=== PATIENT | female | born 1945 | race Caucasian/White ===

== ENCOUNTER 2024-11-19 15:24 | Outpatient (OUT) | payer MEDICARE, SELFPAY ==
--- OUTSIDE RECORDS SUMMARY | 2023-06-24 07:09 | XMS_ITS ---
Author Organization The [facility] [place] in [place] Address [address] [place] [address] Care Team Providers Care Buyer Renter Name Role Phone Gino Hall MD Primary Care Provider Unavailab Dexter Choi Unavailable [phone] REASON FOR VISIT refill see message Medications Medication SIG (Take, Route, Fr equency, Duration) Notes Start Date End Date Status CeleBREX 200 MG 1 capsule with food Orally Twice a day for 30 day(s) 06/03/2023 Active traMADol HCl 50 MG 1 tablet as needed O rally BID for 30 days 06/24/2023 Active Encounters Encounter Location Date Provider Diagnosis [facility] [address] [facility] [address] [address] [place], [place] [id number] 06/24/2023 Dexter Arboleda Primary osteoarthrit is of knees, bilateral M17.0 Assessments Encounter Date Diagnosis (ICD Code) Assessment Notes Treatment Notes Treatment Clinical Notes Section Notes 06/24/2023 Primary osteoarthritis of knees, bilateral (ICD-10 - M17.0) Plan Of Treatment Medication Medication Name Sig Start Date Stop Date Notes CeleBREX 200 MG 1 capsule with food Orally Twice a day for 30 day(s) 06/03/2023 traMADol HCl 50 MG 1 tablet as needed O rally BID for 30 days 06/24/2023 Progress Notes * Michelle ROSEDOB:[birth year] (77 yo F)Acc No.[id number]:06/24/2023 Patient: Julián oteroMichelle valenzuela :1945 A ge:77 Y S ex:Female Address:[address] [place], [address] * Refills Start traMADol HCl Tablet, 50 MG, Orally, 60 Tablet, 1 tablet as needed, BID, 30 days, Refills=0 Refill CeleBREX Capsule, 200 MG, Orally, 60 Capsule, 1 capsule with food, Twice a day, 30 day(s), Refills=3 * true * Date: Generated for Jeanne crow/Celeste/Brendaitting on: 0 11/19/2024 03:26 PM EDT
--- OUTSIDE RECORDS SUMMARY | 2023-10-04 07:00 | XMS_ITS ---
Author Organization The [facility] in [place] Address [address] [place] [address] Care Team Providers Care Film Loader Name Role Phone Rafael MOSLEY, Gino Primary Care Provider Unavailab Dexter Choi Unavailable [phone] REASON FOR VISIT -4 Month Follow Up- Encounters Encounter Location Date Provider Diagnosis [facility] [address] [facility] [address] [place], [place] [id number] 10/04/2023 Dexter Arboleda Plan Of Treatment No Information Progress Notes * Michelle ROSEDOB:[birth year] (79 yo F)Acc No.[id number]:10/04/2023 UNLOCKED PROGRESS NOTE Follow Up Patient: Michelle GALEAS Provider: Lauren Arboleda MD :1945 A ge:78 Y S ex:Female Date:10/04/2023 Address:[address] [place], [place] [id number] Pcp:Gino Hall MD Subjective: * Chief Complaints: * 1 . -4 Month Follow Up-. * Medical History: Objective: * Vitals: Assessment: Plan: * Treatment: * * Electronic signature of Dexter Arboleda MD, [id number] on 11/19/2024 at 03:26 PM EDT Sign off status: Pending Visit Status: R /S (Rescheduled) * Provider: Lauren Arboleda MD Date: 0 10/04/2023 Generated for Printi ng/Faxing/eTransmitting on: 0 11/19/2024 03:26 PM EDT
--- OUTSIDE RECORDS SUMMARY | 2023-11-08 06:15 | XMS_ITS ---
Author Organization The [facility] in [place] Address [address] [place] [address] Care Team Providers Care Pediatric Intensive Physician Name Role Phone Rafael MOSLEY, Gino Primary Care Provider Unavailab Dexter Choi Unavailable [phone] REASON FOR VISIT 5 month follow up Encounters Encounter Location Date Provider Diagnosis [facility] [address] [place], [place] [id number] 11/08/2023 Dexter Arboleda Plan Of Treatment No Information Progress Notes * Michelle ROSEDOB:[birth year] (79 yo F)Acc No.[id number]:11/08/2023 UNLOCKED PROGRESS NOTE Follow Up Patient: Michelle GALEAS Provider: Lauren Arboleda MD :1945 A ge:78 Y S ex:Female Date:11/08/2023 Address:[address] [place], [place] [id number] Pcp:Gino Hall MD Subjective: * Chief Complaints: * 1 . 5 month follow up. * Medical History: Objective: * Vitals: Assessment: Plan: * Treatment: * * Electronic signature of Dexter Arboleda MD, [id number] on 11/19/2024 at 03:26 PM EDT Sign off status: Pending Visit Status: C ANC (Cancelled) * Provider: Lauren Arboleda MD Date: 11/08/2023 Generated for Printi ng/Faxing/eTransmitting on: 11/19/2024 03:26 PM EDT
--- OUTSIDE RECORDS SUMMARY | 2024-11-16 09:30 | XMS_ITS | Encounter Summary ---
Author Organization [facility] Address [address] [place] [address] Care Team Providers Care Director Of Religious Life Name Role Phone Gino Hall MD Primary Care Provider [phone] Reason for Visit * Reason Comments Medicare Annual Wellness Visit Lucianoen t Encounter Details Date Type Department Care Team ([facility] Contact Info) Description 11/16/2024 9:30 AM EDT Office Visit [facility] [address] [facility] [address] [place] [id number] Crista Rubio, PA 112 [facility] [address] [place] [address] Medicare annual wellness visit, subsequent (Primary Dx); ACP (advance care planning); Estrogen deficiency; Obesity (BMI 30-39.9); BMI 31.0-31.9,adult; 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; Benign neoplasm of colon, unspecified part of colon; Diverticulosis of colon; Generalized osteoarthritis; Osteopenia of multiple sites; Primary osteoarthritis of left knee; Primary osteoarthritis of right knee; Vitamin D deficiency; Calcinosis cutis; Elevated LDL cholesterol level (CMS/HCC); Meralgia paresthetica, unspecified laterality; Systemic sclerosis with limited cutaneous involvement (CMS/HCC) Social History Tobacco Use Types Packs/Day Years Used Date Smoking Tobacco: Never Smokeless Tobacco: Never Alcohol Use Standard Drinks/Week Comments Yes 4 (1 standard drink = 0.6 oz pure alcohol) Caffeine intake: chocolate, coffee AUDIT-C Answer Date Recorded Q1: How often do you have a drink containing alc ohol? Monthly or less 10/02/2023 Q2: How many drinks containi ng alcohol do you have on a typical day when you are drinking? 1 or 2 10/02/2023 Q3: How often do you have si x or more drinks on one occasion? Never 10/02/2023 PHQ-2 Answer Date Recorded Patient Health Questionnaire-2 Score 0 11/16/2024 Comments Unknown Sex and Gender Information Value Date Recorded Sex Assigned at Not on file Legal Sex Female 7:22 PM EDT Gender Identity Not on file Sexual Orientation Not on file documented as of this encounter Last Filed Vital Signs Vital Sign Reading Time Taken Comments Blood Pressure 118/76 11/16/2024 9:32 AM EDT Pulse 89 11/16/2024 9:32 AM EDT Temperature - - Respiratory Rate 16 11/16/2024 9:32 AM EDT Oxygen Saturation 96% 11/16/2024 9:32 AM EDT Inhaled Oxygen Concentration - - Weight 77.4 kg (170 lb 9.6 oz) 11/16/2024 9:32 A M EDT Height 156.2 cm (5' 1.5 ) 11/16/2024 9:32 AM EDT Body Mass Index 31.71 11/16/2024 9:32 AM EDT documented in this encounter Functional Status * Over the past 2 weeks, how often have you been bothered by any of the following problems? Question Answer Date of Assessment Author Little interest or pleasure in doing things Not at all 11/16/2024 9:00 AM EDT Corina Rivera LP N Feeling down, depressed, or hopeless Not at all 11/16/2024 9:00 AM EDT Corina Rivera LP N Patient Health Questionnaire -2 Score 0 11/16/2024 9:00 AM EDT Corina Rivera LP N * Question Answer Date of Assessment Author Trouble falling or staying asleep, or sleeping too much Not at all 11/16/2024 9:00 AM EDT Stella Rivera LPN Feeling tired or having quincy le energy Not at all 11/16/2024 9:00 AM EDT Corina Rivera LP N Poor appetite or overeating Not at all 11/16/2024 9: 00 AM EDT Corina Rivera LPN Feeling bad about yourself - or that you are a failure or have let yourself or your family down Not at all 11/16/2024 9:00 AM EDT Corina Rivera LPN Trouble concentrating on thi ngs, such as reading the newspaper or watching television Not at all 11/16/2024 9:00 AM EDT Corina Rivera LP N Moving or speaking so slowly that other people could have noticed? Or the opposite - being so fidgety or restless that you have been moving around a lot more than usual. Not at all 11/16/2024 9:00 AM EDT Corina Rivera LP N Thoughts that you would be better off or hurting yourself in some way Not at all 11/16/2024 9:00 AM EDCorina High L PN Patient Health Questionnaire -9 Score 0 11/16/2024 9:00 AM EDT Corina Rivera LP N documented as of this encounter Progress Notes * JUN Valentin - 11/16/2024 9:30 AM EDT Images from the original note were not included. Subjective Patient ID: Michelle Rose is a 79 y.o. female who presents for Medicare Annual Wellness Visit Subsequent. HPI Medicare Wellness Over the past 2 weeks, how often have you been bothered by any of the following problems? Little interest or pleasure in doing things: Not at all Feeling down, depressed, or hopeless: Not at all Patient Health Questionnaire-2 Score: 0 Over the past 2 weeks, how often have you been bothered by any of the following problems? Trouble falling or staying asleep, or sleeping too much: Not at all Feeling tired or having little energy: Not at all Poor appetite or overeating: Not at all Feeling bad about yourself - or that you are a failure or have let yourself or your family down: Not at all Trouble concentrating on things, such as reading the newspaper or watching television: Not at all Moving or speaking so slowly that other people could have noticed? Or the opposite - being so fidgety or restless that you have been moving around a lot more than usual.: Not at all Thoughts that you would be better off or hurting yourself in some way: Not at all Patient Health Questionnaire-9 Score: 0 Zhao Fall Risk History of Falling, Immediate or Within 3 Months: No Health Risk Assessment Form Do you need help eating, bathing, using the toilet, dressing, or getting around your home?: No Can you prepare your own meals?: Yes Can you do your own housework without help?: Yes Can you shop for groceries or clothes without help?: Yes Do you exercise for about 20 minutes 3 or more days a week?: No How confident are you that you can control and manage most of your health problems?: Very confident Can you mange your money, credit cards and accounts, pay bills and taxes?: Yes Vision Screening: Yes, no gross abnormalities Hearing Screening: Yes, no gross abnormalities Cognitive Screening Self Assessment: No overt cognitive deficiency is apparent by direct observation Three Word Registration: Village, Kitchen, Baby Clock Drawing: Normal Clock - 2 Three Word Recall: All 3 words correct - 3 Total Score (0-5 Points): 5 Pain Assessment Pain Score: 1 Advance Care Planning Do you have a living will?: Yes Do you have a medical power of tax associate attorney?: Yes Current Outpatient Medications on File Prior to Visit Medication Sig Dispense Refill Calcium Carbonate-Vit D-Min (Calcium 600+D Plus Minerals) 600-400 MG-UNIT chewable tablet Chew 1 tablet Daily cholecalciferol (Vitamin D-3) 125 MCG (5000 UT) capsule Take 1 capsule (125 mcg) by mouth Daily 90 capsule 3 nystatin (Mycostatin) [id number] UNIT/GM powder Apply 1 application topically every 12 (twelve) hours. No current facility-administered medications on file prior to visit. I have reviewed and reconciled the history and medication list with the patient today. 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 Smoking Status Never BSA 1.83 m?? Review of Systems Constitutional: Negative for chills, fatigue and fever. HENT: Negative for congestion, ear pain, rhinorrhea and sore throat. Eyes: Negative for pain, discharge and visual disturbance. Respiratory: Negative for cough, shortness of breath and wheezing. Cardiovascular: Negative for chest pain, palpitations and leg swelling. Gastrointestinal: Negative for abdominal pain, constipation, diarrhea, nausea and vomiting. Genitourinary: Negative for difficulty urinating, dysuria and frequency. Musculoskeletal: Positive for arthralgias. Negative for back pain. Skin: Negative for rash. Neurological: Negative for dizziness and numbness. Psychiatric/Behavioral: Negative for sleep disturbance. The patient is not nervous/anxious. Objective Physical Exam Constitutional: General: She is not in acute distress. Appearance: She is well-developed. She is obese. HENT: Head: Normocephalic and atraumatic. Right Ear: Tympanic membrane and ear canal normal. Left Ear: Tympanic membrane and ear canal normal. Nose: Nose normal. Mouth/Throat: Mouth: Mucous membranes are moist. Pharynx: No posterior oropharyngeal erythema. Eyes: General: No scleral icterus. Extraocular Movements: Extraocular movements intact. Conjunctiva/sclera: Conjunctivae normal. Pupils: Pupils are equal, round, and reactive to light. Neck: Vascular: No carotid bruit. Cardiovascular: Rate and Rhythm: Normal rate and regular rhythm. Heart sounds: Normal heart sounds. No murmur heard. Pulmonary: Effort: Pulmonary effort is normal. No respiratory distress. Breath sounds: Normal breath sounds. No wheezing, rhonchi or rales. Abdominal: General: Bowel sounds are normal. There is no distension. Palpations: Abdomen is soft. Tenderness: There is no abdominal tenderness. There is no guarding. Musculoskeletal: General: No swelling. Normal range of motion. Cervical back: Normal range of motion and neck supple. No tenderness. Comments: Arthritic changes noted of bilateral hands. Skin: General: Skin is warm and dry. Capillary Refill: Capillary refill takes less than 2 seconds. Findings: No rash. Neurological: General: No focal deficit present. Mental Status: She is alert and oriented to person, place, and time. Cranial Nerves: No cranial nerve deficit. Sensory: No sensory deficit. Motor: No weakness. Gait: Gait normal. Deep Tendon Reflexes: Reflexes normal. Psychiatric: Mood and Affect: Mood normal. Behavior: Behavior normal. Thought Content: Thought content normal. Judgment: Judgment normal. Assessment & Plan 1. Medicare annual wellness visit, subsequent (Primary) Reviewed all relevant preventative screenings with the patient in detail. Medicare Wellness form completed and will be scanned into patient's chart. All needed testing was ordered. Will continue withyearly Medicare Wellness exams. - CBC and differential; Future - Comprehensive metabolic panel; Future - C-reactive protein; Future - Sedimentation rate, automated; Future - Vitamin D 25 hydroxy Total; Future - Lipid panel; Future 2. ACP (advance care planning) Patient willing to discuss ACP. Pt has Living Will and DPOA in place. 3. Estrogen deficiency This is a chronic medical condition that is stable since last assessment. Updated order for DEXA provided at this time. - DEXA bone density; Future 4. Obesity (BMI 30-39.9) Has lost 4 pounds since her last appointment. Encouraged portion control, decrease simple sugars and carbohydrates, gradually increase activity level. Aim for continued gradual steady weight loss. 5. BMI 31.0-31.9,adult Encouraged portion control, decrease simple sugars and carbohydrates, gradually increase activity level. Aim for continued gradual steady weight loss. 6. 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 No treatment suggested atthis time. 7. Benign neoplasm of colon, unspecified part of colon Seen on previous Colonoscopy. Denies concerns at this time. 8. Diverticulosis of colon Seen on previous Colonoscopy. Denies concerns at this time. 9. Generalized osteoarthritis Patient no longer wishes to follow with Rheumatology. Does not feel that her visits were helpful and would prefer to have her labs monitored here. Ordered CRP and Sed rate to be drawn with her labs in March. - C-reactive protein; Future - Sedimentation rate, automated; Future 10. Osteopenia of multiple sites This is a chronic medical condition that is stable since last assessment. No changes in treatment are suggested at this time. Continue Vitamin D supplement daily. 11. Primary osteoarthritis of left knee Patient no longer wishes to follow with Rheumatology. Does not feel that her visits were helpful and would prefer to have her labs monitored here. Ordered CRP and Sed rate to be drawn with her labs in March. 12. Primary osteoarthritis of right knee Patient no longer wishes to follow with Rheumatology. Does not feel that her visits were helpful and would prefer to have her labs monitored here. Ordered CRP and Sed rate to be drawn with her labs in March. 13. Vitamin D deficiency This is a chronic medical condition that is stable since last assessment. No changes in treatment are suggested at this time. Continue Vitamin D supplement daily. - Vitamin D 25 hydroxy Total; Future 14. Calcinosis cutis Patient no longer wishes to follow with Rheumatology. Does not feel that her visits were helpful and would prefer to have her labs monitored here. Ordered CRP and Sed rate to be drawn with her labs in March. 15. Elevated LDL cholesterol level ([facility]) This is a chronic medical condition that is stable since last assessment. Will recheck with fastinglabs in March. - CBC and differential; Future - Comprehensive metabolic panel; Future - Lipid panel; Future 16. Meralgia paresthetica, unspecified laterality Patient no longer wishes to follow with Rheumatology. Does not feel that her visits were helpful and would prefer to have her labs monitored here. Ordered CRP and Sed rate to be drawn with her labs in March. - C-reactive protein; Future - Sedimentation rate, automated; Future - Vitamin D 25 hydroxy Total; Future 17. Systemic sclerosis with limited cutaneous involvement ([facility]/HCC) Patient no longer wishes to follow with Rheumatology. Does not feel that her visits were helpful and would prefer to have her labs monitored here. Ordered CRP and Sed rate to be drawn with her labs in March. - CBC and differential; Future - Comprehensive metabolic panel; Future - C-reactive protein; Future - Sedimentation rate, automated; Future Follow up in about 1 year (around 11/16/2025) for Medicare Wellness Visit. CRISTELA HartC documented in this encounter Plan of Treatment Scheduled Orders Name Type Priority Associated Diagnoses Orde r Schedule DEXA bone density Imaging Routine Estrogen deficiency Expected: 11/16/2024, Expires: 11/16/2025 CBC and differential Lab Routine Medicare annual wellness visit, subsequent Elevated LDL cholesterol level (CMS/HCC) Systemic sclerosis with limited cutaneous involvement (CMS/HCC) Expected: 03/22/2025 (Approximate), Expires: 03/21/2026 Comprehensive metabolic panel Lab Routine Medicare annual wellness visit, subsequent Elevated LDL cholesterol level (CMS/HCC) Systemic sclerosis with limited cutaneous involvement (CMS/HCC) Expected: 03/22/2025 (Approximate), Expires: 03/21/2026 C-reactive protein Lab Routine Medicare annual wellness visit, subsequent Generalized osteoarthritis Meralgia paresthetica, unspecified laterality Systemic sclerosis with limited cutaneous involvement (CMS/HCC) Expected: 03/22/2025 (Approximate), Expires: 11/16/2025 Sedimentation rate, automated Lab Routine Medicare annual wellness visit, subsequent Generalized osteoarthritis Meralgia paresthetica, unspecified laterality Systemic sclerosis with limited cutaneous involvement (CMS/HCC) Expected: 03/22/2025 (Approximate), Expires: 11/16/2025 Vitamin D 25 hydroxy Total Lab Routine Medicare annual wellness visit, subsequent Vitamin D deficiency Meralgia paresthetica, unspecified laterality Expected: 03/22/2025 (Approximate), Expires: 11/16/2025 Lipid panel Lab Routine Medicare annual wellness visit, subsequent Elevated LDL cholesterol level (CMS/HCC) Expected: 03/22/2025 (Approximate), Expires: 11/16/2025 documented as of this encounter Visit Diagnoses Diagnosis Medicare annual wellness visit, subsequent- Primary ACP (advance care planning) Other specified counseling Estrogen deficiency Other ovarian failure Obesity (BMI 30-39.9) BMI 31.0-31.9,adult 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 Benign neoplasm of colon, unspecified part of colon Diverticulosis of colon Diverticulosis of colon (without mention of hemorrhage) Generalized osteoarthritis Generalized osteoarthrosis, involving multiple sites Osteopenia of multiple sites Primary osteoarthritis of left knee Primary osteoarthritis of right knee Vitamin D deficiency Calcinosis cutis Degenerative skin disorder Elevated LDL cholesterol level (CMS/HCC) Meralgia paresthetica, unspecified laterality Systemic sclerosis with limited cutaneous involvement (CMS/HCC) Systemic sclerosis documented in this encounter Additional Health Concerns Assessment Noted Time PHQ-9 Depression Total Score: 0 11/17/19 25 9:00 AM EDT documented as of this encounter Care Teams Director Of Religious Life Relationship Specialty Start Date End Date Gino Hall MD 112 [facility] [address] [place] [address] PCP - General Internal Medicine 11/26/22 documented as of this encounter
--- OUTSIDE RECORDS SUMMARY | 2024-11-19 15:27 | XMS_ITS | Encounter Summary ---
Author Organization [facility] Address [address] [facility] [place] [address] Care Team Providers Care Hoop Riveting Machine Operator Name Role Phone Gino Hall MD Primary Care Provider [phone] Encounter Details Date Type Department Care Team ([facility] st Contact Info) Description 11/16/2024 Bamboo flowsheet [facility] [address] [place] [address] Crista Rubio, PA [address] [place] [address] Social History Tobacco Use Types Packs/Day Years [...] on file documented as of this encounter Functional Status * Over the [...] way Not at all 11/16/2024 9:00 AM EDT Corina Rivera L PN Patient Health Questionnaire -9 Score 0 11/16/2024 9:00 AM EDT Corina Rivera LP N documented as of this encounter Plan of Treatment Not on file documented as of this encounter Visit Diagnoses Not on filedocumented in this encounter Additional Health Concerns Assessment Noted Time PHQ-9 Depression Total Score: 0 11/17/19 25 9:00 AM EDT documented as of this encounter Care Teams Hoop Riveting Machine Operator Relationship Specialty Start Date End Date Gino Hall MD [address] [address] PCP - General Internal Medicine 11/26/22 documented as of this encounter
--- OUTSIDE RECORDS SUMMARY | 2024-11-19 15:27 | XMS_ITS | Encounter Summary ---
Author Organization [facility] Address [address] [place] [address] Care Team Providers Care Refractory Mixer Name Role Phone Gino Hall MD Primary Care Provider [phone] Encounter Details Date Type Department Care Team (Latest Contact Info) Description 11/16/2024 Travel Social History Tobacco Use Types Packs/Day Years [...] documented as of this encounter Care Teams Refractory Mixer Relationship Specialty Start Date End Date Gino Hall MD [address] [address] PCP - General Internal Medicine 11/26/22 documented as of this encounter
--- OUTSIDE RECORDS SUMMARY | 2024-11-19 15:27 | XMS_ITS | Patient Health Record ---
Author Organization [facility] in [place] Address [address] [place] [address] Care Team Providers Care Assistance Representative Name Role Phone Rafael MOSLEY, Gino Primary Care Provider Unavailab le Allergies Allergen (clinical drug ingredient) Drug/Non Drug Allergy documented on EMR Reaction Allergy Type Onset Date Status Hayfever (uncoded) Unknown Allergy A ctive Reason For Referral No Information Medications Medication SIG (Take, Route, Frequency, Duration) Notes Start Date End Date Status CeleBREX 200 MG 1 capsule with food Orally Twice a day for 30 day(s) 06/03/2023 Active traMADol HCl 50 MG 1 tablet as needed O rally BID for 30 days 06/24/2023 Active Ibuprofen 200 MG 1 tablet with food o r milk as needed Orally Three times a day Active Atelvia 35 MG 1 tablet immediately following breakfast with at least 4 ounces of plain water Orally for 30 day(s) 02/04/2023 Activ e Alendronate Sodium 70 MG 1 tablet Orally Once a week for 30 day(s) 02/20/2023 Active Social History Tobacco Use: Social History Observation Description Date Details (start date - stop date) Never Smoker NA - NA Tobacco Use/Smoking Question Answer Notes Patient is a nonsmoker Alcohol Screen (Audit-C) Question Answer Notes Did you have a drink containing alcohol in the p ast year? 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 Problem 579155852794620 Primary osteoarthritis, left hand (M19.042) Active confirmed Problem 25388737 Primary osteoarthritis, right ankle and foot (M19.071) Active confirmed Problem 069474399 Primary osteoarthritis, left ankle and foot (M19.072) Active confirmed Problem 24144875 Other specified disorders of bone density and structure, multiple sites (M85.89) Active confirmed Problem 326255381 Primary osteoarthritis of right knee (M17.11) Active confirmed Problem 617440527 Primary osteoarthritis of left knee (M17.12) Active confirmed Problem 348371795 Generalized osteoarthritis (M15.9) Active confirmed Problem 635012356 Primary osteoarthritis of knees, bilateral (M17.0) Active confirmed Problem Midline low back pain with right-sided sciatica, unspecified chronicity (M54.41) Active confirmed Problem 876058459 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) Active confirmed Plan Of Treatment No Information Insurance Providers Payer Name Payer Address Payer Phone Subscriber Number Group Number Insured Name Patient Relationship to Insured Coverage Start Date Coverage End Date [employer] AD[employer] PLAN [address] [place] [address] [id number] Michelle Rose Self - patient is the insured 8 Medications Administered Medication Instructions Date of Administration Dosage Notes Betamethasone Acetate 06/03/2023 1 mL Betamethasone Acetate 06/03/2023 1 mL Depo-Medrol, 80 mg/mL 02/04/2017 1 mL Depo-Medrol, 80 mg/mL 06/27/2017 1 mL Depo-Medrol, 80 mg/mL 06/27/2017 1 mL Methylprednisolone Acetate 80mg/mL 03/27/2018 1 mL Methylprednisolone Acetate 80mg/mL 04/10/2019 1 mL Methylprednisolone Acetate 80mg/mL 04/10/2019 1 mL Methylprednisolone Acetate 80mg/mL 06/16/2020 1 mL Methylprednisolone Acetate 80mg/mL 06/16/2020 1 mL Medical (General) History Medical History History ICD Code 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
--- OUTSIDE RECORDS SUMMARY | 2024-11-19 15:27 | XMS_ITS | Encounter Summary ---
Author Organization [facility] Address [address] [place] [address] Care Team Providers Care Workday Manager Name Role Phone Gino Hall MD Primary Care Provider [phone] Encounter Details Date Type Department Care Team ([facility] Contact Info) Description 11/17/2024 Abstract [facility] [address] [facility] 110 [place] [address] Gino Hall MD [address] [facility] 110 [place], [place] [id number] Social History Tobacco Use Types Packs/Day Years [...] on file documented as of this encounter Plan of Treatment Not on file documented as of this encounter Visit Diagnoses Not on filedocumented in this encounter Additional Health Concerns Assessment Noted Time PHQ-9 Depression Total Score: 0 11/17/19 25 9:00 AM EDT documented as of this encounter Care Teams Workday Manager Relationship Specialty Start Date End Date Gino Hall MD [address] [id number] PCP - General Internal Medicine 11/26/22 documented as of this encounter
--- OUTSIDE RECORDS SUMMARY | 2024-11-19 15:27 | XMS_ITS | Clinical Summary ---
Author Organization [facility] Address [address] [place] [address] Care Team Providers Care Brim Buster Name Role Phone Gino Hall MD Primary Care Provider [phone] Allergies No known active allergies Medications nystatin (Mycostatin) 112117 UNIT/GM powder Apply 1 application topically every 12 (twelve) hours. 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 11/26/2022 BMI 31.0-31.9,adult 11/26/2022 Osteopenia of multiple sites 11/26/2022 Primary osteoarthritis of left knee 11/26/2022 Primary osteoarthritis of right knee 11/26/2022 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 Systemic sclerosis with limited cutaneous involv ement 11/26/2022 Meralgia paresthetica 12/23/2019 Resolved Problems Problem Noted Date Diagnosed Date Resolved Date Stage 3a chronic kidney disease (HCC) 11/26/2022 11/16/2024 Systemic sclerosis 11/26/2022 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 Encounters Date Type Department Care Team Description 11/17/2024 Abstract [facility] [address] [facility] 110 [place] [address] Gino Hall MD 11/16/2024 9:30 AM EDT Office Visit [facility] [address] [facility] [address] [place] [address] Crista Rubio PA Medicare annual wellness visit, subsequent (Primary Dx); [...] Systemic sclerosis with limited cutaneous involvement (CMS/HCC) 11/16/2024 Bamboo flowsheet [facility] [address] [address] [place] [address] Crista Rubio PA 11/16/2024 Travel from Last 3 Months Immunizations Immunization Administration Dates Next Due Td (adult), unspecified 05/02/2001 Family History Medical History Relation Name Comments Colon cancer Brother Colon cancer Father Cancer Mother Cancer Sibling Relation Name Status Comments Brother Father Mother Sibling Social History Tobacco Use Types Packs/Day Years [...] on file Sexual Orientation Not on file Last Filed Vital Signs Vital Sign Reading [...] Mass Index 31.71 11/16/2024 9:32 AM EDT Plan of Treatment Health Maintenance Due Date Last Done Comments Pneumococcal Vaccine: 65+ Ye ars (1 of 1 - PCV) 1993 Influenza Vaccine (Season Ended) 2025 Medicare Annual Wellness (AWV) 11/16/2025 0 11/16/2024, 10/02/2023, 02/06/2023 Insurance [employer] MED[employer] ADVANTAGE Care Teams Brim Buster Relationship Specialty Start Date End Date Gino Hall MD [address] [facility] [address] [place], [place] [id number] PCP - General Internal Medicine 11/26/22
--- OUTSIDE RECORDS SUMMARY | 2024-11-19 15:28 | XMS_ITS | Encounter Summary ---
Author Organization [facility] Address [address] [place] [address] Care Team Providers Care Slot Operations Manager Name Role Phone Gino Hall MD Primary Care Provider [phone] Lyndon Blackwell MD Unavailable Gino Hall MD Unavailable [phone] Encounter Details Date Type Department Care Team ([facility] Contact Info) Description 02/06/2023 Abstract [facility] [address] [facility] 110 [place] [address] Gino Hall MD [address] [facility] 110 [place] [address] Social History Tobacco Use Types Packs/Day Years Used Date Smoking Tobacco: Never Smokeless Tobacco: Never Alcohol Use Standard Drinks/Week Comments Yes 4 (1 standard drink = 0.6 oz pure alcohol) Caffeine intake: chocolate, coffee AUDIT-C Answer Date Recorded Q1: How often do you have a drink containing alc ohol? Monthly or less 11/27/2022 Q2: How many drinks containi ng alcohol do you have on a typical day when you are drinking? 1 or 2 11/27/2022 Q3: How often do you have si x or more drinks on one occasion? Never 11/27/2022 PHQ-2 Answer Date Recorded Patient Health Questionnaire-2 Score 0 02/06/2023 Comments Unknown Sex and Gender Information Value [...] pleasure in doing things Not at all 02/06/2023 9:00 AM EDT Corina Rivera LP N Feeling down, depressed, or hopeless Not at all 02/06/2023 9:00 AM EDT Corina Rivera LP N Patient Health Questionnaire -2 Score 0 02/06/2023 9:00 AM EDT Corina Rivera LP N * Question Answer Date of Assessment Author Trouble falling or staying asleep, or sleeping too much Not at all 02/06/2023 9:00 AM EDT Stella Rivear LPN Feeling tired or having quincy le energy Not at all 02/06/2023 9:00 AM EDT Corina Rivera LP N Poor appetite or overeating Not at all 02/06/2023 9: 00 AM EDT Corina Rivera LPN Feeling bad about yourself - or that you are a failure or have let yourself or your family down Not at all 02/06/2023 9:00 AM EDT Corina Rivera LPN Trouble concentrating on thi ngs, such as reading the newspaper or watching television Not at all 02/06/2023 9:00 AM EDT Corina Rivera LP N Moving or speaking so slowly that other people could have noticed? Or the opposite - being so fidgety or restless that you have been moving around a lot more than usual. Not at all 02/06/2023 9:00 AM EDT Corina Rivera LP N Thoughts that you would be better off or hurting yourself in some way Not at all 02/06/2023 9:00 AM EDT Corina Rivera L PN Patient Health Questionnaire -9 Score 0 02/06/2023 9:00 AM EDT Corina Rivera LP N documented as of this encounter Plan of Treatment Not on file documented as of this encounter Visit Diagnoses Not on filedocumented in this encounter Additional Health Concerns Assessment Noted Time PHQ-9 Depression Total Score: 0 02/07/20 9:00 AM EDT documented as of this encounter Care Teams Slot Operations Manager Relationship Specialty Start Date End Date Gino Hall MD [address] [facility] 110 [place] [address] PCP - General Internal Medicine 11/26/22 Lyndon Blackwell MD [address] [facility] 110 [place] [address] PCP - Lucita CHAPPELL 02/15/23 03/16/23 Gino Hall MD [address] [facility] 110 [place] [address] PCP - Lucita CHAPPELL 03/17/23 01/15/24 documented as of this encounter
--- OUTSIDE RECORDS SUMMARY | 2024-11-19 15:28 | XMS_ITS | Encounter Summary ---
Author Organization [facility] Address [address] [place] [address] Care Team Providers Care Telesales Professional Name Role Phone Gino Hall MD Primary Care Provider [phone] Lyndon Blackwell MD Unavailable Gino Hall MD Unavailable [phone] Encounter Details Date Type Department Care Team ([facility] Contact Info) Description 02/12/2023 Abstract [facility] [address] [facility] 110 [place] [address] Gino Hall MD [address] [place] [address] [place] [address] Social History Tobacco Use Types [...] documented as of this encounter Care Teams Telesales Professional Relationship Specialty Start Date End Date Gino Hall MD [address] [place] [address] [place] [address] PCP - General Internal Medicine 11/26/22 Lyndon Blackwell MD [address] [place] [address] [place] [address] PCP - Lucita CHAPPELL 02/15/23 03/16/23 Gino Hall MD [address] [place] [address] [place] [address] PCP - Lucita CHAPPELL 03/17/23 01/15/24 documented as of this encounter
--- OUTSIDE RECORDS SUMMARY | 2024-11-19 15:28 | XMS_ITS | Encounter Summary ---
Author Organization [facility] Address [address] [place] [address] Care Team Providers Care Mint Wafer Depositor Name Role Phone Gino Hall MD Primary Care Provider [phone] Gino Hall MD Unavailable [phone] Encounter Details Date Type Department Care Team ([facility] Contact Info) Description 06/05/2023 Abstract [facility] 112 [facility] 110 [place] [phone] Gino Hall MD 112 [facility] 110 [place] [address] Social History Tobacco Use Types Packs/Day Years [...] Time PHQ-9 Depression Total Score: 0 02/07/20 23 9:00 AM EDT documented as of this encounter Care Teams Mint Wafer Depositor Relationship Specialty Start Date End Date Gino Hall MD [address] [facility] 110 [place] [address] PCP - General Internal Medicine 11/26/22 Gino Hall MD [address] [facility] 110 [place] [address] PCP - Lucita CHAPPELL 03/17/23 01/15/24 documented as of this encounter
--- OUTSIDE RECORDS SUMMARY | 2024-11-19 15:28 | XMS_ITS | Encounter Summary ---
Author Organization [facility] Address [address] [place] [address] Care Team Providers Care Harbor Tug Captain Name Role Phone Gino Hall MD Primary Care Provider Lyndon Blackwell MD Unavailable Gino Hall MD Unavailable [phone] Encounter Details Date Type Department Care Team ([facility] Contact Info) Description 02/12/2023 Abstract [facility] [address] [facility] 110 [place] [address] Gino Hall MD [address] [facility] 110 [place] [address] Social History Tobacco Use Types [...] documented as of this encounter Care Teams Harbor Tug Captain Relationship Specialty Start Date End Date Gino Hall MD [address] [facility] 110 [place] [address] PCP - General Internal Medicine 11/26/22 Lyndon Blackwell MD [address] [facility] 110 [place] [address] PCP - Lucita CHAPPELL 02/15/23 03/16/23 Gino Hall MD [address] [facility] 110 [place] [address] PCP - Lucita CHAPPELL 03/17/23 01/15/24 documented as of this encounter
--- OUTSIDE RECORDS SUMMARY | 2024-11-19 15:28 | XMS_ITS | Encounter Summary ---
Author Organization [facility] Address [address] [place] [address] Care Team Providers Care Electric Train Driver Name Role Phone Gino Hall MD Primary Care Provider [phone] Gino Hall MD Unavailable Encounter Details Date Type Department Care Team ([facility] Contact Info) Description 10/03/2023 Abstract [facility] 112 [facility] 110 [place] [phone] Gino Hall MD 112 [facility] 110 [place], [place] [phone] Social History Tobacco Use Types Packs/Day Years [...] Date Recorded Patient Health Questionnaire-2 Score 0 10/02/2023 Comments Unknown Sex and Gender Information Value [...] Noted Time PHQ-9 Depression Total Score: 0 10/02/19 24 9:00 AM EDT documented as of this encounter Care Teams Electric Train Driver Relationship Specialty Start Date End Date Gino Hall MD [address] [facility] 110 [place] [address] PCP - General Internal Medicine 11/26/22 Gino Hall MD 112 [facility] 110 [place] [address] PCP - Lucita CHAPPELL 03/17/23 01/15/24 documented as of this encounter
== END 2024-11-19 15:25 | disposition home or self-care (01) ==
LOC: RAD 15:24
PROVIDERS: PCP Internal Medicine; Visit Provider Physician Assistant
DX: E28.39 Other primary ovarian failure (principal); M85.80 Other specified disorders of bone density and structure, unspecified site
CPT/HCPCS: 77080

== ENCOUNTER 2025-01-23 12:02 | Emergency (ER) | payer MEDICARE, SELFPAY ==
[2025-01-23 12:05] VITALS: BP 165/83; PULSE 81; TEMP 36.6; O2SAT 97; BMI 30.7
--- NOTE | 2025-01-23 12:22 | CT_ITS ---
The [address] [address] Patient Name: LARISA DICKENS MRN: [id number] date: 1945 Sex: F Assigned Patient Location: ER Current Patient Location: ED.MAIN Accession/Order Number: [id number] Exam Date: 01/23/2025 12:45 Report Date: 01/23/2025 12:47 At the request of: LEELA QUINTERO MD Procedure: CT head/brain wo con CT BRAIN WITHOUT CONTRAST: CLINICAL HISTORY: Fall. Hit right side of head. COMPARISON: None TECHNIQUE: Contiguous axial unenhanced images were obtained through the brain. This CT exam was performed using one or more following dose reduction techniques: Automated exposure control, adjustment of the mA and/or kV according to patient size, or use of iterative reconstruction technique. FINDINGS: There is no evidence of midline shift, intra or extra-axial fluid collection, hemorrhage or CT evidence of stroke. Posterior fossa appears unremarkable. Visualized intraorbital contents demonstrate no acute findings. Visualized paranasal sinuses are clear. The surrounding soft tissues are normal. CT/CT head/brain wo con IMPRESSION: NO ACUTE INTRACRANIAL ABNORMALITY. Impression dictated by: Flaco Torre Jr., D.O. 01/23/2025 12:47 PM Dictation Location: [facility] Electronically authenticated by: [id number] Y Date: 01/23/2025 12:47
[2025-01-23] MEDS: DIPHTH,PERTUSS(ACELL),TET VAC 0.5 ML SYRINGE IM (12:44)
[2025-01-23] MEDS: LIDOCAINE/EPINEPHRINE/TETRACAINE 3 ML GEL.PF.APP 1.5 ML TOPICAL (12:45)
--- NOTE | 2025-01-23 12:58 | ED.GENADUL1 ---
HPI HPI - General Adult General Chief complaint: Skin/Abscess/Foreign Body Stated complaint: head injury Time Seen by Provider: 01/23/25 12:17 Source: patient Mode of arrival: walk-in History of Present Illness HPI narrative: The patient is a 79-year-old female is coming to the ER after the speed at her garage fell on her head, did not pass out she has been awake since then she had no nausea no vomiting and she was sustained a laceration to the scalp, the patient last tetanus booster was more than 5 years ago Related Data Previous Rx's ?Medication ?Instructions ?Recorded amoxicillin 875 mg-potassium 1 tab PO Q12H #14 tabs 01/23/25 clavulanate 125 mg tablet Allergies Allergy/AdvReac Type Severity Reaction Status Date / Time No Known Drug Allergies Allergy Verified 01/23/25 12:08 Review of Systems ROS Status of ROS 10 or more systems reviewed and unremarkable except as noted in history and below PFSH PFSH Social History Little interest or pleasure in doing things: not at all Feeling down, depressed, or hopeless: not at all Exam Narrative Exam Narrative: Nurses notes and vital signs reviewed and patient is not hypoxic. General: Well-appearing and in no apparent distress. Skin: Warm, dry, no pallor noted. No rash. Head: Normocephalic, there is a scalp laceration at the right posterior aspect of the upper occipital area that is measuring 1.5 cm linear and clean, no exposure of the underlying structure no foreign body Neck: Supple, non-tender. Eye: Pupils are equal, round and EOMI. No scleral icterus. Cardiovascular: Regular Rate and Rhythm without murmur, gallop or rub. Respiratory: No accessory muscle use or respiratory distress. Lungs are clear to auscultation, no wheezing, rales or rhonchi Chest Wall: no tenderness Back: No midline thoracic or lumbar vertebral tenderness. No CVA tenderness Musculoskeletal: normal ROM, no calf or popliteal tenderness, no lower extremity edema/swelling GI: Abdomen is soft, non-distended. Normal bowel sounds. No masses appreciated. No tenderness to palpation. No rebound, guarding, or rigidity noted. Neurological: A&O x4. No cranial nerve dysfunction observed. No truncal ataxia. Moves all extremities. Sensation intact. Psychiatric: Cooperative and interactive. Normal mood and affect. Constitutional Vital Signs, click to edit/add: Last Vital Signs Temp 97.8 F 01/23/25 12:05 Pulse 81 01/23/25 12:05 Resp 18 01/23/25 12:05 BP 165/83 H 01/23/25 12:05 Pulse Ox 97 01/23/25 12:05 O2 Del Method Room Air 01/23/25 12:05 Course Vital Signs Vital signs: Vital Signs Temperature 97.8 F 01/23/25 12:05 Pulse Rate 81 01/23/25 12:05 Respiratory Rate 18 01/23/25 12:05 Blood Pressure 165/83 H 01/23/25 12:05 Pulse Oximetry 97 01/23/25 12:05 Oxygen Delivery Method Room Air 01/23/25 12:05 Temperature 97.8 F 01/23/25 12:05 Pulse Rate 81 01/23/25 12:05 Respiratory Rate 18 01/23/25 12:05 Blood Pressure 165/83 H 01/23/25 12:05 Pulse Oximetry 97 01/23/25 12:05 Oxygen Delivery Method Room Air 01/23/25 12:05 Medical Decision Making MDM Narrative Medical decision making narrative: After cleaning the wound thoroughly the patient had a LET applied and 2 shabbir applied as well The patient then had a CT of the head showed no acute pathology Boostrix tetanus booster provided The patient instructed about wound care and proper monitoring after head injury Shabbir to be removed after 5 to 7 days The patient is to follow up with primary care physician in next 2-3 days or to return to the emergency department should any of the signs or symptoms worsen or new symptoms develop. The patient agrees with the following Diagnosis and Treatment plan and the patient will be discharged home. Discharge Plan Discharge Chief Complaint: Skin/Abscess/Foreign Body Clinical Impression: Laceration of scalp Patient Disposition: Home, Self-Care Time of Disposition Decision: 13:15 Condition: Good Prescriptions / Home Meds: New amoxicillin-pot clavulanate 875-125 mg tablet 1 tab PO Q12H Qty: 14 0RF Print Language: Icelandic Instructions: Laceration (DC), Staple Care (ED) Referrals: LYNN MONTES DE OCA [Primary Care Provider, Internal Medicine] - 1 week
== END 2025-01-23 13:45 | disposition home or self-care (01) ==
PROVIDERS: Emergency Provider Emergency Medicine; PCP Internal Medicine
DX: S01.01XA Laceration without foreign body of scalp, initial encounter (principal); Z23 Encounter for immunization; W18.30XA Fall on same level, unspecified, initial encounter
CPT/HCPCS: 70450; 90471; 99285